=== PATIENT | male | born 1990 | race Caucasian/White ===

== ENCOUNTER 2018-03-08 07:43 | Emergency (ER) | payer OTHER, BC ==
[~2018-03-08] VITALS: Ht 170.2 cm; Wt 75.0 kg
[2018-03-08 07:49] VITALS: TEMP 36.7; Ht 170.2 cm; Wt 75.0 kg
[2018-03-08] MEDS ORDERED: PREG100C PO (07:56)
[2018-03-08] MEDS ORDERED: IBUPROFEN 600 MG TAB PO STA (08:03)
--- NOTE | 2018-03-08 08:25 | DIAGNOSTIC IMAGING REPORT ---
L ANKLE MIN 3 VIEWS ROUTINE CLINICAL HISTORY: LEFT INJURY COMPARISON: None FINDINGS: Alignment of left ankle is anatomic. No acute fracture the distal left tibia or fibula is identified. There is no ankle mortise widening. Talar dome is intact. A suspected bone island within the calcaneus is noted. There is an acute nondisplaced fracture within the base of the left fifth metatarsal with intra-articular extension. IMPRESSION: 1. Acute comminuted nondisplaced fracture within the base of the left fifth metatarsal which is better depicted on the left foot radiographs. Please see that report for further description. 2. No acute fracture or dislocation of the left ankle. Electronically signed by: Danny Marquez M.D. 03/08/2018 8:24 AM Dictated Date/Time: 03/08/2018 8:22 AM
--- NOTE | 2018-03-08 08:26 | DIAGNOSTIC IMAGING REPORT ---
L FOOT MIN 3 VIEWS ROUTINE CLINICAL HISTORY: LEFT FOOT INJURY COMPARISON: None FINDINGS: Tarsometatarsal joints are intact. Note is made of an acute nondisplaced comminuted fracture within the base of the left fifth metatarsal with intra-articular extension. No additional fractures are identified on this examination. IMPRESSION: Acute nondisplaced comminuted fracture within the base of the left fifth metatarsal with intra-articular extension. Electronically signed by: Danny Marquez M.D. 03/08/2018 8:25 AM Dictated Date/Time: 03/08/2018 8:24 AM
[2018-03-08 09:00] VITALS: BP 135/72; PULSE 76; O2SAT 96
--- NOTE | 2018-03-08 09:55 | EMERGENCY ROOM VISIT NOTE ---
History First contact with patient: 07:52 Chief Complaint: FOOT PAIN Stated Complaint: LEFT FOOT PAIN History of Present Illness The patient is a 27 year old male who presents to the Emergency Room with complaints of left ankle and foot pain after stepping off of a pallet this morning at work. At approximately 4 AM, the patient reports that he was stepping off of the palate when he inverted the ankle and foot. He reports pain mostly over the lateral aspect of the foot. He denies any pain over the medial ankle or heel region. He denies any pain extending into the leg. He also denies any paresthesias or numbness of the left foot or toes. Weightbearing worsens his pain to a 7 out of 10. The patient denies any prior history of left ankle or foot injuries. 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 Alert and oriented X 3 with positive affect. Patient does not appear in any acute distress. HEENT: Normocephalic, atraumatic. Pupils equal, round and reactive. NECK: Full active range of motion without discomfort. MUSCULOSKELETAL: Examination shows edema and ecchymosis over the lateral ankle and foot region. No tenderness to palpation over the medial ankle joint, dorsal midfoot, phalanges, calcaneus or Achilles tendon. Pedal pulses are intact. INTEGUMENTARY: No rash or other significant dermatologic conditions noted. NEUROLOGIC: Left foot and toes are sensory intact. Medical Decision & Procedures ER Provider Diagnostic Interpretation: My interpretation of left ankle x-rays does not show any acute ankle fractures, dislocation, subluxation or ankle mortise asymmetry. A fracture at the base of the fifth metatarsal is noted. Radiologist report is as follows: [~ rep ct add3]] L ANKLE MIN 3 VIEWS ROUTINE CLINICAL HISTORY: LEFT INJURY COMPARISON: None FINDINGS: Alignment of left ankle is anatomic. No acute fracture the distal left tibia or fibula is identified. There is no ankle mortise widening. Talar dome is intact. A suspected bone island within the calcaneus is noted. There is an acute nondisplaced fracture within the base of the left fifth metatarsal with intra-articular extension. IMPRESSION: 1. Acute comminuted nondisplaced fracture within the base of the left fifth metatarsal which is better depicted on the left foot radiographs. Please see that report for further description. 2. No acute fracture or dislocation of the left ankle. My interpretation of left foot x-ray shows a comminuted and intra-articular fracture through the base of the fifth metatarsal. Radiologist report is as follows: L FOOT MIN 3 VIEWS ROUTINE CLINICAL HISTORY: LEFT FOOT INJURY COMPARISON: None FINDINGS: Tarsometatarsal joints are intact. Note is made of an acute nondisplaced comminuted fracture within the base of the left fifth metatarsal with intra-articular extension. No additional fractures are identified on this examination. IMPRESSION: Acute nondisplaced comminuted fracture within the base of the left fifth metatarsal with intra-articular extension. Medications Administered Medications (Trade) Dose Ordered Sig/Juanjo Route Start Time Stop Time Status Last Admin Dose Admin Ibuprofen (Motrin Tab) 600 mg NOW STAT PO 03/08/18 08:03 03/08/18 08:04 DC 03/08/18 08:09 600 MG ED Course Patient history and physical exam were performed. Nurse's notes were reviewed. Vital signs were reviewed and were normal. The patient was administered ibuprofen at his request for pain. X-rays of the left foot confirms a comminuted nondisplaced fracture at the base of the fifth metatarsal. The patient was offered a posterior Ortho-Glass splint, but he declined. Crutches were dispensed. The patient was instructed to follow-up with his Worker's Compensation approved orthopedic surgeon for further reevaluation and management. He was encouraged to ice and elevate the foot for swelling. Ibuprofen and Tylenol in alternating fashion as needed for pain. The patient was happy with plan of care, voiced understanding of all discharge instructions , and rated his pain a 3 out of 10 at the time of discharge. Medical Decision Medication Reconcilliation Current Medication List: was personally reviewed by me Blood Pressure Screening Patient's blood pressure: Normal blood pressure Impression Primary Impression: Nondisplaced fracture of fifth left metatarsal bone Additional Impression: Work related injury Departure Information Referrals No Doctor, Assigned (PCP) Patient Instructions My [facility] Problem Qualifiers Primary Impression: Nondisplaced fracture of fifth left metatarsal bone Encounter type: initial encounter Fracture type: closed Qualified Codes: S92.355A - Nondisplaced fracture of fifth metatarsal bone, left foot, initial encounter for closed fracture
== END 2018-03-08 09:01 | disposition home or self-care (01) ==
LOC: C.EDB 07:44 → C.EDA 09:01
DX: S92.355A Nondisplaced fracture of fifth metatarsal bone, left foot, initial encounter for closed fracture (principal); S90.02XA Contusion of left ankle, initial encounter; I73.00 Raynaud's syndrome without gangrene; X50.9XXA Other and unspecified overexertion or strenuous movements or postures, initial encounter; Y99.0 Civilian activity done for income or pay